=== PATIENT | female | born 1955 | race Caucasian/White ===

== ENCOUNTER → 2016-11-25 | Outpatient (CLI) | payer BC ==
[~2016-11-25] MED LIST: AMLO5TAB2 PO; ASP81CT PO; ASPI-983 PO; BISM262O27 PO; BUDE10.2 IH; CEFU500T PO; CETI10CA PO; CYAN10007 PO; CYCL10TA9 PO; DICY10CA12 PO; DOCU-238 PO; ERGO400C PO; ERYT250C61 PO; EZET10TA5 PO; FAMO20TA3 PO; FAMO20TA5 PO; FAMO20TA73 PO; FENO135C PO; FLUO10CA19 PO; FLUO10CA29 PO; FLUT16SP22 NS; HYDR-3714 PO; HYDR-3729 PO; HYDR-3812 PO; HYDR1TAB PO; ISOS30TA3 PO; LISI-597 PO; LISI10TA2 PO; METO200T32 PO; METO50TA7 PO; MIRT15TA6 PO; MTP50T PO; NF-MET200T PO; NF-XOP-HFA INH; NITR12SP5 SL; PRAS10TA6 PO; RABE20TA PO; RABE20TA27 PO; RANO500T3 PO; ROSU10TA PO; RT-ALBUINH IH; RT-ALBUTEROL SULF 2.5 MG/3 ML PRE-MIX VIAL INH ONE; SIMV40TA2 PO; SULF1TAB35 PO; mega red
--- NOTE | 2016-11-25 15:34 | Diagnostic Imaging Report ---
INDICATION: Dyspnea. Cough. Comparison with 12/08/2015. FINDINGS: Two views show the lungs to be well aerated. No infiltrates have developed. Calcified granuloma again noted in the right upper lung. Heart is not enlarged. No hilar adenopathy. No pneumothorax or pleural effusion. IMPRESSION: Calcified granuloma with no acute changes demonstrated when compared with previous exam. Dictated by: Dictated on workstation # [id number]
== END ==
LOC: RT 14:55
PROVIDERS: ATTEND Internal Medicine Critical Care Medicine
DX: R06.00 Dyspnea, unspecified (principal)
CPT/HCPCS: 71020; 94060; 94640; 94726; 94729

== ENCOUNTER 2017-01-23 09:59 | Outpatient (RCR) | payer BC ==
[~2017-01-23 09:59] MED LIST changes: -RT-ALBUTEROL SULF 2.5 MG/3 ML PRE-MIX VIAL INH ONE
== END 2017-04-23 | disposition home or self-care (01) ==
LOC: PULM 09:59
PROVIDERS: ATTEND Nurse Practitioner Family
DX: J43.9 Emphysema, unspecified (principal); R06.00 Dyspnea, unspecified; F17.201 Nicotine dependence, unspecified, in remission
CPT/HCPCS: 99211

== ENCOUNTER → 2017-01-25 | Outpatient (CLI) | payer BC ==
--- NOTE | 2017-01-26 10:05 | ECHOCARDIOGRAPHY REPORT ---
DATE OF SERVICE: 01/25/2017 PROCEDURE: Two-dimensional echocardiogram. REFERRING PHYSICIAN: Dr. Marguerite Pinto. INDICATIONS: Coronary artery disease. MEASUREMENTS: LVID end diastolic 3.8. IVS thickness 1.1. LVPW thickness 1.0. Left atrial diameter 2.5. Ejection fraction 60%. FINDINGS: 1. Technical quality is good. 2. The left ventricle is normal in size with normal contractility. Systolic function appeared to be normal. Estimated ejection fraction 60%. Diastolic dysfunction is suggested by Doppler. 3. The left atrium is normal in size. No clot or thrombus were seen within the left atrium. 4. The right atrium and right ventricle are normal in size. No clot or thrombus were seen within the right side. 5. The mitral valve is normal in morphology with mild mitral regurgitation noted by color Doppler flow. No mitral valve prolapse. No mitral valve stenosis. 6. The aortic valve is trileaflet with normal opening and closing pattern. No significant aortic stenosis or regurgitation was seen. 7. The tricuspid valve is normal in morphology with mild tricuspid regurgitation noted by color Doppler flow. Doppler across tricuspid valve estimated pulmonary artery pressure of 25 plus right atrial pressure. 8. The pulmonic valve is functioning normally. 9. No pericardial effusion. CONCLUSION: 1. Normal left ventricular size and systolic function. Estimated ejection fraction of 60%. 2. Mild mitral and tricuspid regurgitation. 3. Estimated pulmonary artery pressure of 30-35 mmHg. Job ID: [id number] DocumentID: [id number] Dictated Date: 01/25/2017 17:10:27 Commercial Portfolio Manager Date: 01/26/2017 09:38:26 Dictated By: MELISSA PAREKH MD
== END ==
LOC: CARD 12:32
PROVIDERS: ATTEND Physician Assistant
DX: I25.10 Atherosclerotic heart disease of native coronary artery without angina pectoris (principal); I65.23 Occlusion and stenosis of bilateral carotid arteries; I10 Essential (primary) hypertension; E78.2 Mixed hyperlipidemia
CPT/HCPCS: 93306

== ENCOUNTER → 2017-02-08 | Outpatient (CLI) | payer BC ==
[~2017-02-08] MED LIST changes: +CATHETER FLUSH 10 ML SYR IV PRN; +REGADENOSON 0.4 MG/5 ML SYR (LEXISCAN) IV ONE
[2017-02-08 09:20] VITALS: BP 140/72
== END ==
LOC: CARD 07:22
PROVIDERS: ATTEND Physician Assistant
DX: I25.10 Atherosclerotic heart disease of native coronary artery without angina pectoris (principal); I65.23 Occlusion and stenosis of bilateral carotid arteries; I10 Essential (primary) hypertension; E78.2 Mixed hyperlipidemia
CPT/HCPCS: 78452; 93017

== ENCOUNTER → 2018-03-07 | Outpatient (CLI) | payer BC ==
[~2018-03-07] MED LIST changes: +ACHD5005 PO; -CATHETER FLUSH 10 ML SYR IV PRN; -HYDR-3812 PO; +ISM60TCR PO; -METO200T32 PO; +METO200T48 PO; +MONT10TA24 PO; +NF-XOP-HFA IH; -REGADENOSON 0.4 MG/5 ML SYR (LEXISCAN) IV ONE; +TIOT4MIS3 IH
== END ==
LOC: PREOP 10:03
PROVIDERS: ATTEND Internal Medicine
DX: Z01.818 Encounter for other preprocedural examination (principal)

== ENCOUNTER → 2018-12-10 | Outpatient (CLI) | payer BC, OTHER ==
[~2018-12-10] MED LIST changes: -AMLO5TAB2 PO; +AMLO5TAB9 PO; -ROSU10TA PO; +ROSU10TA22 PO
[2018-12-10 08:01] LABS: ALBUMIN 3.9 GM/DL (3.2-4.5); BILIRUBIN,TOTAL 0.2 MG/DL (0.1-1.0); CALCIUM 9.4 MG/DL (8.5-10.1); CREATININE SERUM 1.18 MG/DL (0.60-1.30); POTASSIUM 3.8 MMOL/L (3.6-5.0); TOTAL PROTEIN 7.2 GM/DL (6.4-8.2)
== END ==
LOC: CARD 07:21
PROVIDERS: ATTEND Physician Assistant
DX: I25.10 Atherosclerotic heart disease of native coronary artery without angina pectoris (principal); I10 Essential (primary) hypertension; E78.5 Hyperlipidemia, unspecified; R06.09 Other forms of dyspnea; I07.1 Rheumatic tricuspid insufficiency
CPT/HCPCS: 36415; 80053; 80061; 93306

== ENCOUNTER → 2018-12-12 | Outpatient (CLI) | payer BC, OTHER ==
[~2018-12-12] VITALS: Ht 162.6 cm; Wt 62.6 kg
[~2018-12-12] MED LIST changes: +CATHETER FLUSH 10 ML SYR IV PRN; +REGADENOSON 0.4 MG/5 ML SYR (LEXISCAN) IV ONE
[2018-12-12 09:08] VITALS: BP 143/63
[2018-12-12 09:10] VITALS: BP 137/58
--- NOTE | 2018-12-12 16:08 | STRESS TEST ---
DATE OF SERVICE: 12/12/2018 LEXISCAN MYOVIEW STRESS TEST REPORT REFERRING PHYSICIAN: Marguerite Pinto DO. Baseline heart rate is 64. Baseline blood pressure 136/66. Baseline EKG is sinus rhythm with no ischemic changes. In summary, the patient was injected with 10.2 mCi of technetium-99 Myoview and the resting images were obtained. Then, the patient received 0.4 mg of Lexiscan followed by 29.9 mCi of technetium-99 Myoview. Throughout the test, there were no EKG changes. The resting and stress images were reviewed and compared in the short axis, horizontal long axis, and vertical long axis view. Review of the images showed good radiotracer uptake with no significant ischemia or infarction. SSS is 0. TID value is 0.94. On the gated images, the left ventricle appeared to be in normal size with normal contractility. Calculated ejection fraction 75%. CONCLUSION: 1. The patient tolerated Lexiscan well. 2. No ischemia or infarction on SPECT images. 3. Normal left ventricular size with normal contractility. Calculated ejection fraction 75%. Job ID: [id number] DocumentID: [id number] Dictated Date: 12/12/2018 15:18:59 Cloth Finishing Range Operator Date: 12/12/2018 16:07:42 Dictated By: MELISSA PAREKH MD
== END ==
LOC: CARD 07:22
PROVIDERS: ATTEND Physician Assistant
DX: R06.09 Other forms of dyspnea (principal); I25.10 Atherosclerotic heart disease of native coronary artery without angina pectoris; I10 Essential (primary) hypertension
CPT/HCPCS: 78452; 93017

== ENCOUNTER → 2019-02-25 | Outpatient (CLI) | payer BC ==
[~2019-02-25] MED LIST changes: -CATHETER FLUSH 10 ML SYR IV PRN; -REGADENOSON 0.4 MG/5 ML SYR (LEXISCAN) IV ONE
--- NOTE | 2019-02-25 12:40 | Diagnostic Imaging Report ---
Indication: Routine screening. Comparison is made to prior mammogram from 08/05/2015 and 07/28/2014. 2-D and 3-D bilateral screening mammography was performed with CAD. Scattered fibroglandular densities are identified bilaterally. Benign-appearing calcifications are noted bilaterally. Benign-appearing nodule in the outer left breast appears stable. No mass or malignant-appearing microcalcifications are seen. Axillae unremarkable. Impression: BI-RADS category 2 No mammographic features suspicious for malignancy are identified. ACR BI-RADS Category 2: Benign findings. Result letter will be mailed to the patient. Note: At least 10% of breast cancer is not imaged by mammography. Dictated by: Dictated on workstation # [id number]
== END ==
LOC: RAD 08:09
PROVIDERS: ATTEND Internal Medicine
DX: Z12.31 Encounter for screening mammogram for malignant neoplasm of breast (principal); Z00.00 Encounter for general adult medical examination without abnormal findings
CPT/HCPCS: 77067

== ENCOUNTER → 2019-08-05 | Outpatient (CLI) | payer BC ==
[~2019-08-05] MED LIST changes: +RT-ALBUTEROL SULF 2.5 MG/3 ML PRE-MIX VIAL INH SCH; +RT-ALBUTEROL SULF 2.5 MG/3 ML PRE-MIX VIAL ONE
[2019-08-05 11:33] LABS: CREATININE SERUM 1.34 MG/DL (0.60-1.30)
--- NOTE | 2019-08-05 13:45 | Diagnostic Imaging Report ---
EXAMINATION: CT Chest without contrast. TECHNIQUE: Multiple contiguous axial images were obtained through the chest without the use of intravenous contrast. All CT scans use one or more of the following dose optimizing techniques: automated exposure control, MA and/or KvP adjustment based on a patient size and exam type, or iterative reconstruction. HISTORY: DYSPNEA COMPARISON: None available. FINDINGS: The lungs are clear without edema or pneumonia. No pleural effusion or pneumothorax. No suspicious nodules. There is mild emphysema. Heart size is normal. No pericardial effusion. Aorta is normal in caliber. There is no axillary or supraclavicular lymphadenopathy. There is no mediastinal lymphadenopathy. There are severe coronary artery calcifications, likely with stents present in multiple coronary arteries. Calcified mediastinal and hilar lymph nodes are present. Calcified granulomas are seen in the right lobe. Gallbladder is surgically absent. There are calcified granulomas in the spleen. There are no suspicious osseous lesions. IMPRESSION: 1. Mild emphysema, otherwise, clear lungs. Dictated by: Dictated on workstation # [id number]
== END ==
LOC: RAD 10:55
PROVIDERS: ATTEND Nurse Practitioner Family
DX: J43.9 Emphysema, unspecified (principal); J30.9 Allergic rhinitis, unspecified; K21.9 Gastro-esophageal reflux disease without esophagitis; F17.201 Nicotine dependence, unspecified, in remission
CPT/HCPCS: 36415; 71250; 82565; 84520; 94060; 94726; 94729

== ENCOUNTER → 2020-12-30 | Outpatient (CLI) | payer OTHER ==
[~2020-12-30] MED LIST changes: +AMLO-250 PO; -AMLO5TAB9 PO; +ASPI-1238 PO; -ASPI-983 PO; -ERYT250C61 PO; +ERYT250C62 PO; +EZET10TA17 PO; -EZET10TA5 PO; -FLUO10CA19 PO; +FLUO10CA31 PO; -ISM60TCR PO; -ISOS30TA3 PO; +ISOS30TA82 PO; +ISOS60TA63 PO; -LISI10TA2 PO; +LISI10TA25 PO; -MONT10TA24 PO; +MONT10TA32 PO; -RABE20TA27 PO; +RABE20TA30 PO; -RT-ALBUTEROL SULF 2.5 MG/3 ML PRE-MIX VIAL INH SCH; -RT-ALBUTEROL SULF 2.5 MG/3 ML PRE-MIX VIAL ONE
== END ==
LOC: CARD 09:00
PROVIDERS: ATTEND Physician Assistant
DX: I25.10 Atherosclerotic heart disease of native coronary artery without angina pectoris (principal); I51.7 Cardiomegaly; I36.1 Nonrheumatic tricuspid (valve) insufficiency
CPT/HCPCS: 93306

== ENCOUNTER → 2021-01-27 | Outpatient (CLI) | payer OTHER ==
[~2021-01-27] VITALS: Ht 162 cm; Wt 64.0 kg
[~2021-01-27] MED LIST changes: +CATHETER FLUSH 10 ML SYR IV PRN; -DOCU-238 PO; +DOCU-241 PO; +REGADENOSON 0.4 MG/5 ML SYR (LEXISCAN) IV ONE
[2021-01-27 09:04] VITALS: BP 137/64
--- NOTE | 2021-01-27 14:46 | Cardiology Stress Test Report ---
Stress Test Report Date of Procedure/Referring: Date of Procedure: January 27, 2021 Bailey Alexander Admitting Physician Seng Barrios MD Indications: Coronary artery disease Baseline Heart Rate: 59 Baseline Blood Pressure: Blood Pressure Systolic: 137 Blood Pressure Diastolic: 64 Baseline Vitals Vital Signs Date Time Temp Pulse Resp B/P (MAP) Pulse Ox O2 Delivery O2 Flow Rate FiO2 01/27/21 09:04 59 137/64 (88) 98 Baseline EKG: Baseline EKG: NSR Summary After explaining the procedure to the patient, she signed a consent and then brought to the stress nuclear laboratory. Patient received 0.4 mg Lexiscan for stress test, ECG, heart rate and blood pressure were monitored continuously. Resting and stress dose of radio tracer were injected, imaging was acquired and reviewed in short axis, horizontal long axis and vertical long axis views. TID: 1.07 SSS: 3 SDS: 3 EF: 72 1. Patient tolerated Lexiscan well 2. No significant ischemia or infarction on SPECT images 3. Normal left ventricular size, EF 72% MELISSA PAREKH MD January 27, 2021 14:46
== END ==
LOC: CARD 07:45
PROVIDERS: ATTEND Physician Assistant
DX: I25.10 Atherosclerotic heart disease of native coronary artery without angina pectoris (principal)
CPT/HCPCS: 78452; 93017; A9502

== ENCOUNTER → 2021-02-16 | Outpatient (CLI) | payer OTHER ==
[~2021-02-16] MED LIST changes: -CATHETER FLUSH 10 ML SYR IV PRN; -REGADENOSON 0.4 MG/5 ML SYR (LEXISCAN) IV ONE
--- NOTE | 2021-02-17 08:57 | Diagnostic Imaging Report ---
Indication: Routine screening. Comparison is made with prior mammogram from 02/25/2019 and 08/05/2015. 2-D and 3-D bilateral screening mammography was performed with CAD. Scattered fibroglandular densities are identified bilaterally. A benign nodule in the outer left breast is stable. There are benign calcifications bilaterally. No spiculated mass or malignant appearing microcalcifications are seen. Axillae are unremarkable. IMPRESSION: BI-RADS Category 2 No mammographic features suspicious for malignancy are identified. ACR BI-RADS Category 2: Benign findings. Result letter will be mailed to the patient. Note: At least 10% of breast cancer is not imaged by mammography. Dictated by: Dictated on workstation # [id number]
== END ==
LOC: RAD 13:30
PROVIDERS: ATTEND Pediatrics
DX: Z12.31 Encounter for screening mammogram for malignant neoplasm of breast (principal)
CPT/HCPCS: 77063; 77067

== ENCOUNTER → 2021-06-21 | Outpatient (CLI) | payer OTHER ==
[~2021-06-21] MED LIST changes: -DOCU-241 PO; +DOCU-26 PO; +MIRT-68 PO; -SULF1TAB35 PO; +SULF1TAB38 PO
--- NOTE | 2021-06-21 19:58 | Diagnostic Imaging Report ---
CT Lung Screening INDICATION: [id number] history of smoking, quit smoking six years prior, screening for lung cancer. TECHNIQUE: Noncontrast, low-dose CT imaging performed according to the lung cancer screening protocol. Auto Exposure Controls were utilize during the CT exam to meet ALARA standards for radiation dose reduction. COMPARISON: 08/05/2019. FINDINGS: Calcified mediastinal and hilar lymph nodes are again identified. No pathologically enlarged lymph nodes within the chest. Scattered vascular calcifications without aneurysmal dilatation of the thoracic aorta. Ductus bump/ductus diverticulum is again identified. The heart is within normal limits in size. No significant pericardial effusion. Advanced vascular calcifications versus stents associated with the coronary arteries. Tiny hiatal hernia. No pericardial effusion. No pleural effusion. No pneumothorax. The trachea is patent. 2 mm subpleural solid left upper lobe pulmonary nodule, series 2, image 43. 4 mm pleural-based left upper lobe pulmonary nodule is stable. Stable solid 4 mm left lower lobe pulmonary nodule, series 2, image 169. Calcified granuloma within the right upper lobe. Additional 4 mm and smaller bilateral pulmonary nodules are present and not significantly changed. No additional new suspicious pulmonary nodule. Cholecystectomy. Calcified splenic granuloma. Minimally visualized upper abdomen is otherwise unremarkable. No acute osseous abnormality with mild scattered osseous degenerative changes. IMPRESSION: 1. Bilateral sub-0.4 cm pulmonary nodules are felt to have a benign appearance or morphology. 2. Moderate background emphysematous changes. 3. Stents versus advanced vascular calcifications within the coronary arteries. 4. Evidence of chronic granulomatous disease. LUNG-RADS CATEGORY: 2: Benign appearance or behavior. FOLLOW-UP: Continued annual low-dose CT of the chest in 12 months. Dictated by: Dictated on workstation # [id number]
== END ==
LOC: RAD 16:15
PROVIDERS: ATTEND Nurse Practitioner Family
DX: Z12.2 Encounter for screening for malignant neoplasm of respiratory organs (principal); J43.9 Emphysema, unspecified; R91.8 Other nonspecific abnormal finding of lung field; Z87.891 Personal history of nicotine dependence
CPT/HCPCS: 71271

== ENCOUNTER → 2023-02-23 | Outpatient (CLI) | payer OTHER ==
[~2023-02-23] MED LIST changes: +ALBU8.5H6 IH; +CYCL10TA25 PO; -FLUO10CA31 PO; +FLUO10CA33 PO; +MONT-40 PO; -MONT10TA32 PO; +NF-CRES10T PO; -ROSU10TA22 PO; -RT-ALBUINH IH
== END ==
LOC: CARD 08:12
PROVIDERS: ATTEND Physician Assistant
DX: I34.0 Nonrheumatic mitral (valve) insufficiency (principal); I11.9 Hypertensive heart disease without heart failure; I25.10 Atherosclerotic heart disease of native coronary artery without angina pectoris
CPT/HCPCS: 93306

== ENCOUNTER → 2023-04-26 | Outpatient (CLI) | payer OTHER | LOC: CARD 07:08 | PROVIDERS: ATTEND Physician Assistant | DX: I25.10 Atherosclerotic heart disease of native coronary artery without angina pectoris (principal) ==

== ENCOUNTER 2023-05-24 13:57 | Emergency (ER) | payer OTHER ==
[~2023-05-24] VITALS: Ht 164 cm; Wt 65.7 kg
[2023-05-24] MEDS ORDERED: NS IV 1000 ML 1,000 ML IV STA (14:02)
--- NOTE | 2023-05-24 14:07 | ED General ---
General Chief Complaint: Cardiac/General Problems Stated Complaint: LOW BP Nursing Triage Note: PT TO RM 7 BY [facility] EMS FROM [facility] WITH CC OF HYPOTENSION, FLU LIKE SS SINCE MONDAY, DIZZY AND NOT EATING WELL FOR A FEW DAYS, COUGH IS GETTING BETTER, PT'S TRIED TO POOP HER BACK FOR HER AND NOW PT HAS LT RIB PAIN Source of Information: Patient Exam Limitations: No Limitations (VENRON WILSON) History of Present Illness Date Seen by Provider: May 24, 2023 Time Seen by Provider: 14:05 Initial Comments Patient is a 68-year-old female who presents to ED for flulike symptoms. She states symptoms started 3 days ago with body aches, chills weakness fatigue cough and headache. She states initially her cough was productive now today is more dry. Some associated shortness of breath. She states the body aches and fatigue and weakness have improved today. She was seen at the clinic today for to receive something for cough and was found to be hypotensive with a blood pressure in the 70s systolic. She was given 500 mL of normal saline. Blood pressure improved to 102/55 per EMS. She denies any vomiting, diarrhea, chest pain or abdominal pain. She has been taken cold and flu medication and Tylenol. She does have a history of COPD, hypertension, coronary artery disease. She was concerned today as she felt dizzy but has not eaten as much over the past few days. She is currently on metoprolol 200 mg daily. Patient reports ur ination without any pain or difficulty. Denies fever, visual changes, sore throat, ear pain, unilateral weakness or sensory changes. Patient states her attempted to pop her back today she felt a sharp pain to her left lateral ribs with tenderness and pain on deep inspiration (VERNON WILSON) Allergies and Home Medications Allergies Coded Allergies: Penicillins (Verified Allergy, Unknown, 04/12/07) Patient Home Medication List Home Medication List Reviewed: Yes (VERONN WILSON) Amlodipine Besylate (Amlodipine Besylate) 5 Mg Tablet, 5 MG PO DAILY, (Reported) Entered as Reported by: DEYSI BONE on 03/09/18 0900 Aspirin (Aspirin EC) 81 Mg Tablet.dr, 81 MG PO DAILY, (Reported) Entered as Reported by: ERASTO KIRAN on 09/07/15 1345 Cetirizine HCl (Zyrtec) 10 Mg Capsule, 10 MG PO DAILY, (Reported) Entered as Reported by: ALICE CALDERA on 09/27/15 1658 Cyclobenzaprine HCl (Cyclobenzaprine HCl) 10 Mg Tablet, 10 MG PO BID PRN for MUSCLE SPASMS, (Reported) Entered as Reported by: PIPER QUICK on 10/12/15 1018 Famotidine (Famotidine) 20 Mg Tablet, 20 MG PO BID, (Reported) Entered as Reported by: ERASTO KIRAN on 12/08/15 1625 Isosorbide Mononitrate (Isosorbide Mononitrate ER) 60 Mg Tab, 60 MG PO DAILY, (Reported) Entered as Reported by: DEYSI BONE on 03/09/18 0900 Levalbuterol Tartrate (Xopenex Hfa) 15 Gm Hfa.aer.ad, 2 PUFF IH Q4H PRN for SHORTNESS OF BREATH, (Reported) Entered as Reported by: DEYSI BONE on 03/09/18 0900 Metoprolol Succinate (Toprol Xl) 200 Mg Tab, 200 MG PO DAILY, (Reported) Entered as Reported by: ERASTO KIRAN on 12/08/15 1625 Mirtazapine (Mirtazapine) 15 Mg Tablet, 15 MG PO HS, (Reported) Entered as Reported by: ERASTO KIRAN on 12/08/15 1625 Montelukast Sodium (Montelukast Sodium) 10 Mg Tablet, 10 MG PO DAILY, (Reported) Entered as Reported by: DEYSI BONE on 03/09/18 0900 Rabeprazole Sodium (Rabeprazole Sodium) 20 Mg Tablet.dr, 20 MG PO DAILY, ( Reported) Entered as Reported by: ERASTO KIRAN on 12/08/15 1625 Rosuvastatin Calcium (Crestor) 10 Mg Tablet, 10 MG PO HS, (Reported) Entered as Reported by: ERASTO KIRAN on 09/07/15 1345 Tiotropium Br/Olodaterol HCl (Stiolto Respimat Inhal Mull[place]) 4 Gm Mist.inhal, 4 GM IH DAILY, (Reported) Entered as Reported by: DEYSI BONE on 03/09/18 0900 Review of Systems Review of Systems Constitutional: chills, dizziness; No fever; malaise, weakness EENTM: No ear pain, No blurred vision, No double vision Respiratory: cough; No dyspnea on exertion; short of breath Cardiovascular: No chest pain Gastrointestinal: No abdominal pain, No diarrhea, No nausea, No vomiting Genitourinary: No decreased output, No discharge Musculoskeletal: No back pain, No joint pain Skin: No change in color, No change in hair/nails (VERNON WILSON) All Other Systems Reviewed Negative Unless Noted: Yes (VERNON WILSON) Past Bbhshuu-Zjvlil-Icehmt Hx Immunizations Up To Date Tetanus Booster (TDap): More than 5yrs PED Vaccines UTD: Yes (VERNON WILSON) Seasonal Allergies Seasonal Allergies: Yes (VERNON WILSON) Past Medical History Cardiac, Coronary Stent, Gallbladder, Hysterectomy, Orthopedic Asthma, COPD, Emphysema Currently Using CPAP: No Currently Using BIPAP: No Coronary Artery Disease, High Cholesterol, Hypertension Headaches /Migraines Reproductive Disorders: No Female Reproductive Disorders: Endometriosis 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: Hysterectomy Gastroesophageal Reflux, Hiatal Hernia, Irritable Bowel Osteoporosis, Arthritis Loss of Vision: Denies Hearing Impairment: Denies Anxiety Adverse Reaction/Blood Tranf: No (VERNON WILSON) Family Medical History Cardiovascular disease 19 MOTHER G8 BROTHER High cholesterol Hypertension 19 MOTHER Heart Disease, Cancer (VERNON WILSON) Physical Exam Vital Signs Vital Signs - First Documented 05/24/23 13:58 Temp 36.1 Pulse 54 Resp 20 B/P (MAP) 102/57 (72) Pulse Ox 98 O2 Delivery Room Air (WILFRED ZAZUETA MD) Vital Signs Capillary Refill : Less Than 3 Seconds (VERNON WILSON) Height, Weight, BMI Height: 5'4.00" Weight: 138lbs. 0.0oz. [id number]; 24.00 BMI Method:Stated General Appearance: No Apparent Distress, WD/WN Eyes: Bilateral Eye Normal Inspection, Bilateral Eye PERRL, Bilateral Eye EOMI HEENT: PERRL/EOMI, TMs Normal, Normal ENT Inspection, Pharynx Normal Neck: Full Range of Motion, Normal Inspection, Non Tender, Supple Respiratory: Chest Non Tender, No Accessory Muscle Use, No Respiratory Distress, Other (Tenderness below left breast. No crepitus or step-off. Lung sounds clear bilateral) Cardiovascular: No Gallop, No JVD, No Murmur, Bradycardia Gastrointestinal: Normal Bowel Sounds, No Organomegaly, No Pulsatile Mass, Non Tender Extremity: Normal Capillary Refill, Normal Inspection, Normal Range of Motion, Non Tender Neurologic/Psychiatric: Alert, Oriented x3, No Motor/Sensory Deficits, Normal Mood/Affect, optical dispenser II-XII Norm as Tested (VERNON WILSON) Focused Exam Lactate Level 05/24/23 14:40: Lactic Acid Level 1.05 (WILFRED ZAZUETA MD) Lactic Acid Level Laboratory Tests Test 05/24/23 14:40 Lactic Acid Level 1.05 MMOL/L (0.50-2.00) (WILFRED ZAZUETA MD) Progress/Results/Core Measures Suspected Sepsis SIRS Temperature: Pulse: 54 Respiratory Rate: 20 Laboratory Tests 05/24/23 14:00: White Blood Count 2.8L Blood Pressure 102 /57 Mean: 72 05/24/23 14:40: Lactic Acid Level 1.05 Laboratory Tests 05/24/23 14:00: Creatinine 1.47H, Platelet Count 178, Total Bilirubin 0.2 (VERNON WILSON) Results/Orders Lab Results Laboratory Tests Test 05/24/23 14:00 05/24/23 14:10 05/24/23 14:40 05/24/23 15:50 Range/Units White Blood Count 2.8 L 4.3-11.0 10^3/uL Red Blood Count 3.47 L 3.80-5.11 10^6/uL Hemoglobin 7.8 L 11.5-16.0 g/dL Hematocrit 27 L 35-52 % Mean Corpuscular Volume 78 L 80-99 fL Mean Corpuscular Hemoglobin 23 L 25-34 pg Mean Corpuscular Hemoglobin Concent 29 L 32-36 g/dL Red Cell Distribution Width 18.5 H 10.0-14.5 % Platelet Count 178 130-400 10^3/uL Mean Platelet Volume 11.7 9.0-12.2 fL Immature Granulocyte % (Auto) 0 % Neutrophils (%) (Auto) 50 42-75 % Lymphocytes (%) (Auto) 33 12-44 % Monocytes (%) (Auto) 17 H 0-12 % Eosinophils (%) (Auto) 0 0-10 % Basophils (%) (Auto) 0 0-10 % Neutrophils # (Auto) 1.4 L 1.8-7.8 10^3/uL Lymphocytes # (Auto) 0.9 L 1.0-4.0 10^3/uL Monocytes # (Auto) 0.5 0.0-1.0 10^3/uL Eosinophils # (Auto) 0.0 0.0-0.3 10^3/uL Basophils # (Auto) 0.0 0.0-0.1 10^3/uL Immature Granulocyte # (Auto) 0.0 0.0-0.1 10^3/uL Sodium Level 138 135-145 MMOL/L Potassium Level 3.7 3.6-5.0 MMOL/L Chloride Level 107 98-107 MMOL/L Carbon Dioxide Level 21 21-32 MMOL/L Anion Gap 10 5-14 MMOL/L Blood Urea Nitrogen 16 7-18 MG/DL Creatinine 1.47 H 0.60-1.30 MG/DL Estimat Glomerular Filtration Rate 39 BUN/Creatinine Ratio 11 Glucose Level 119 H 70-105 MG/DL Calcium Level 7.9 L 8.5-10.1 MG/DL Corrected Calcium 8.4 L 8.5-10.1 MG/DL Total Bilirubin 0.2 0.1-1.0 MG/DL Aspartate Amino Transf (AST/SGOT) 44 H 5-34 U/L Alanine Aminotransferase (ALT/SGPT) 30 0-55 U/L Alkaline Phosphatase 110 40-136 U/L Troponin I < 0.028 <0.028 NG/ML C-Reactive Protein High Sensitivity 0.14 0.00-0.50 MG/DL Total Protein 6.3 L 6.4-8.2 GM/DL Albumin 3.4 3.2-4.5 GM/DL Lipase 68 8-78 U/L Influenza Type A (RT-PCR) Not Detected Not Detecte Influenza Type B (RT-PCR) Not Detected Not Detecte SARS-CoV-2 RNA (RT-PCR) Detected H Not Detecte Lactic Acid Level 1.05 0.50-2.00 MMOL/L Urine Color YELLOW Urine Clarity CLEAR Urine pH 5.5 5-9 Urine Specific [place] 1.025 H 1.016-1.022 Urine Protein 1+ H NEGATIVE Urine Glucose (UA) NEGATIVE NEGATIVE Urine Ketones NEGATIVE NEGATIVE Urine Nitrite NEGATIVE NEGATIVE Urine Bilirubin NEGATIVE NEGATIVE Urine Urobilinogen 0.2 < = 1.0 MG/DL Urine Leukocyte Esterase NEGATIVE NEGATIVE Urine RBC (Auto) NEGATIVE NEGATIVE Urine RBC NONE /HPF Urine WBC 0-2 /HPF Urine Squamous Epithelial Cells >50 H /HPF Urine Crystals PRESENT H /LPF Urine Amorphous Sediment FEW NELSON URATES H /LPF Urine Bacteria TRACE /HPF Urine Casts PRESENT /LPF Urine Hyaline Casts 25-50 H /LPF Urine Mucus LARGE H /LPF Urine Culture Indicated NO (WILFRED ZAZUETA MD) Vital Signs/I&O 05/24/23 05/24/23 05/24/23 05/24/23 13:58 14:11 15:07 16:28 Temp 36.1 36.1 Pulse 54 56 59 58 62 Resp 20 20 B/P (MAP) 102/57 (72) 107/49 (68) 105/53 89/47 (61) 94/44 (61) Pulse Ox 98 98 O2 Delivery Room Air Room Air Room Air (WILFRED ZAZUETA MD) Vital Signs/I&O Capillary Refill : Less Than 3 Seconds (VERNON WILSON) Blood Pressure Mean: 72 ECG Comment Sinus bradycardia, 53 bpm, QRS duration 90 MS, QTc 442 MS (VERNON WILSON) Departure Communication (PCP) History of COPD, coronary artery disease who presents to ED by EMS for evaluation for flulike symptoms and hypotension. Patient was seen at the clinic this afternoon. Patient Was found to have a blood pressure in the mid 70s systolic. She does take amlodipine, metoprolol, isosorbide mononitrate. She states her blood pressure typically runs 110/80 at home. She Was started on a liter of fluid at [facility]. Blood pressure on arrival was 102/57. She reports flulike symptoms for the past 3 days. Up-to-date on her COVID-vaccine. She reports a cough that was productive for the first 2 days but that has improved. She states her symptoms are improving. She was seen at the clinic today to get cough medication. No vomiting or diarrhea. Patient denies of any current chest pain. No shortness of breath. No focal neural deficits. She did become slightly hypotensive. She was started on a second liter of fluid. Blood pressure improved avg betwen 110-120 systolic with several similar readings. CBC returned hemoglobin of 7.8, white blood cell 2.8, hematocrit 27. Chemistry creatinine 1.47 GFR 39. History of chronic kidney disease. No recent comparison. Normal lactic acid and troponin.. Blood cultures pending. She did receive Rocephin for meetign sirs criteria. Chest x-ray was negative for pneumonia, pneumothorax. She did have some tenderness and pain below the left breast after her popped her back. X-ray did show Questionable new 1 cm nodular density projecting over the right mid to upper lung just inferior to a stable chronic benign calcified granuloma. No fracture or pneumothorax. Recommend outpatient follow-up for stability and evaluation of the not. Patient was able to ambulate without much dizziness. Dizziness has improved after her blood pressure improved. She did not meet the criteria for orthostatic hypotension but her blood pressure did drop 94/44 from 107/47. She was currently asymptomatic during that. She was observed here in the ED with continued monitoring of blood pressure. She remained hemodynamically stable. I did discussed continue observing with a 3 L of fluid but she refused. Did add COVID and influenza which she tested positive for COVID. Due to her corm orbidities she met criteria for Paxlovid. She refused treatment. She states her symptoms are improving and does not want to take the medication secondary to medication interactions. Patient is feeling much better at this time. Discussed with patient I suggest not taking her blood pressure medication for the next 1 to 2 days. Continue monitoring blood pressure. Recommend staying hydrated. If any worsening symptoms such as dizziness, lightheadedness or continued low blood pressure she will need to return back to ED. conservative treatment for the COVID. Isolate for additional 2 more days. As long as she is asymptomatic may return with a mask for additional 5 days. (VERNON WILSON) Impression Primary Impression: COVID-19 Additional Impressions: Anemia Hypotension Disposition: 01 HOME, SELF-CARE Condition: Stable Departure-Patient Inst. Decision time for Depature: 16:16 (VERNON WILSON) Referrals: SRI ALBARRAN DO (PCP) Primary Care Physician DELPHINE SEAY MD (Family) Primary Care Physician Patient Instructions: COVID-19 (DC) Add. Discharge Instructions: Recommend stop taking your blood pressure medication for the next 1 to 2 days. Recommend staying hydrated. Continue monitoring blood pressure. Suggest starting iron supplement ferrous sulfate 300 mg daily. Recheck with your primary care physician in the next 2 or 3 days for reevaluation. If any worsening symptoms return back to ED. All discharge instructions reviewed with patient and/or family. Voiced understanding. ATTENDING PHYSICIAN NOTE: I was physically present as attending physician in the emergency department during the care of this patient, but I was not directly involved in the decision making or delivery of care for this patient. (WILFRED ZAZUETA MD) VERNON WILSON May 24, 2023 14:07 WILFRED ZAZUETA MD May 24, 2023 19:48
[2023-05-24 14:10] LABS: BASOPHILS % (AUTO) 0 % (0-10); EOSINOPHILS % (AUTO) 0 % (0-10); HEMATOCRIT 27 % (35-52); HEMOGLOBIN 7.8 g/dL (11.5-16.0); LYMPHOCYTES # (AUTO) 0.9 10^3/uL (1.0-4.0); LYMPHOCYTES % (AUTO) 33 % (12-44); MEAN CORPUSCULAR HEMOGLOBIN 23 pg (25-34); MEAN CORPUSCULAR HGB CONC 29 g/dL (32-36); MEAN CORPUSCULAR VOLUME 78 fL (80-99); MEAN PLATELET VOLUME 11.7 fL (9.0-12.2); MONOCYTES # (AUTO) 0.5 10^3/uL (0.0-1.0); MONOCYTES % (AUTO) 17 % (0-12); NEUTROPHILS # (AUTO) 1.4 10^3/uL (1.8-7.8); NEUTROPHILS % (AUTO) 50 % (42-75); PLATELET COUNT 178 10^3/uL (130-400); WHITE BLOOD COUNT 2.8 10^3/uL (4.3-11.0)
[2023-05-24 14:23] LABS: ALBUMIN 3.4 GM/DL (3.2-4.5); CHLORIDE 107 MMOL/L (98-107); POTASSIUM 3.7 MMOL/L (3.6-5.0); SODIUM 138 MMOL/L (135-145)
[2023-05-24 14:24] LABS: CALCIUM 7.9 MG/DL (8.5-10.1)
[2023-05-24 14:25] LABS: GLUCOSE 119 MG/DL (70-105); TOTAL PROTEIN 6.3 GM/DL (6.4-8.2)
[2023-05-24 14:26] LABS: CARBON DIOXIDE 21 MMOL/L (21-32)
[2023-05-24 14:27] LABS: BILIRUBIN,TOTAL 0.2 MG/DL (0.1-1.0)
[2023-05-24 14:29] LABS: ALKALINE PHOSPHATASE 110 U/L (40-136); CREATININE SERUM 1.47 MG/DL (0.60-1.30); GFR ESTIMATED 39
[2023-05-24 14:30] LABS: BUN/CREATININE RATIO 11
[2023-05-24 14:32] LABS: ALANINE AMINOTRANSFERASE 30 U/L (0-55); LIPASE 68 U/L (8-78)
[2023-05-24] MEDS ORDERED: cefTRIAXone IV/IM 1,000 MG in NS (IVPB) 50 ML 50 ML IV STA (14:36)
--- NOTE | 2023-05-24 14:52 | Diagnostic Imaging Report ---
INDICATION: Shortness of breath. COMPARISON: Exam is compared with radiograph 11/25/2016. 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 However, projecting just inferior to that stable density is a new opacity ovoid measuring about 1 cm reflecting a change from prior. This is not clearly associated with any overlying ribs and is suspicious for a new pulmonary nodule. Consider follow-up with a chest CT. This would not necessitate IV contrast. Lungs are otherwise nonfocal and clear. No failure, effusion, or pneumothorax. IMPRESSION: 1. Questionable new 1 cm nodular density projecting over the right mid to upper lung just inferior to a stable chronic benign calcified granuloma. 2. Otherwise, negative. Dictated by: Dictated on workstation # [id number]
[2023-05-24 15:07] VITALS: BP_SYST 107; BP_SYST 89; BP_SYST 94; BP_DIAS 44; BP_DIAS 47; BP_DIAS 49
[2023-05-24 16:09] LABS: BACTERIA,URINE TRACE /HPF; BILIRUBIN,URINE NEGATIVE (NEGATIVE); CLARITY,URINE CLEAR; COLOR,URINE YELLOW; GLUCOSE, URINE (UA) NEGATIVE (NEGATIVE); KETONES,URINE NEGATIVE (NEGATIVE); LEUKOCYTE ESTERASE ,URINE NEGATIVE (NEGATIVE); NITRITE,URINE NEGATIVE (NEGATIVE); PH,URINE 5.5 (5-9); PROTEIN,URINE 1+ (NEGATIVE); SQUAMOUS EPITHELIAL CELL,UR >50 /HPF; WBC,URINE 0-2 /HPF
[2023-05-24 16:10] LABS: AMORPHOUS SEDIMENT,UR FEW AMOR URATES /LPF; HYALINE CASTS, URINE 25-50 /LPF
[2023-05-24 16:28] VITALS: BP 105/53
== END 2023-05-24 16:28 | disposition home or self-care (01) ==
LOC: EDUNIT# 13:57 → ER 14:00
DX: U07.1 COVID-19 (principal); D64.9 Anemia, unspecified; I95.9 Hypotension, unspecified; R05.9 Cough, unspecified; M79.10 Myalgia, unspecified site; R07.81 Pleurodynia
CPT/HCPCS: 36415; 71045; 80053; 81000; 83605; 83690; 84484; 85025; 86141; 87040; 87636; 93005

== ENCOUNTER → 2023-07-06 | Outpatient (CLI) | payer OTHER ==
[~2023-07-06] MED LIST changes: +CATHETER FLUSH 10 ML SYR IVP PRN; -EZET10TA17 PO; +EZET10TA83 PO; +FAMO-356 PO; -FAMO20TA3 PO; +IBUP-30 PO
--- NOTE | 2023-07-06 14:56 | Diagnostic Imaging Report ---
PET/CT INDICATION: Staging renal mass TECHNIQUE: PET/CT imaging was obtained from the base of the skull through the pelvis after the administration of 10.5 mCi of F-[address] imaging was utilized for localization and attenuation correction purposes. The low energy CT utilized for attenuation correction is not considered to be of high enough spatial resolution to allow in and of itself a separate anatomical analysis. Blood glucose 95 mg There are no prior PET/CT examinations available for comparison. The CT angiogram chest exam of 06/20/2023 did note a 1.5 cm pulmonary nodule within the right upper lobe. On this study that nodule is again identified and the nodule is hypermetabolic. The maximum SUV in this area is 12.65. Consequently this mass should be considered neoplastic until proven otherwise. There is no other hypermetabolic activity identified within the mediastinum or lung parenchyma. However there are areas of abnormal uptake involving the anterior tips of the left 7th and 8th ribs. The maximum SUV in these regions is 4.5. The CT images do suggest healing callus formation about the anterior aspects of the 7th and 8th ribs and most likely the abnormal uptake is related to recent trauma and not to metastatic disease. The CT angiography chest exam also suggested a partially imaged 1.5 cm left renal mass. That mass is not hypermetabolic with a max SUV of only 1.9. However in reviewing the previous CT exam the mass does show some vascularity and appears to be solid. The possibility that this is an indolent renal neoplasm should still be considered. A short-term (three-month) follow-up CTA abdomen and pelvis exam would be recommended for further study. There is no other hyper metabolic activity to suggest the presence of malignancy. There is a vague area of slight increased hyper metabolic activity in the right groin just anterior to the common femoral artery and vein. This has a max/SUV of 2.3.I suspect that this is a sequela of prior interventional procedure, such as a cardiac catheterization. Correlation with the patient's history would be recommended. There is also a small area of slightly increased hyper metabolic activity in the soft tissues along the spinous process of one of the mid cervical vertebral on the left. The maximum SUV in this area is 3.0. This is probably related to muscular activity. The CT images failed to show any sign of an acute abnormality. The gallbladder is surgically absent. There is diverticulosis of the sigmoid colon but there is no sign of acute diverticulitis. IMPRESSION: 1. The 1.5 cm mass in the right upper lung seen on the recent CTA chest exam is hypermetabolic and should be considered neoplastic until proven otherwise. There is also increased hypermetabolic activity in the anterior aspects of the left 7th and 8th ribs. However the healing callus formation about the 7th and 8th ribs does suggest that the uptake is related to recent trauma as opposed to metastatic disease. Correlation with the patient's history would be recommended. 2. There is no other hypermetabolic activity to suggest the presence of malignancy. In particular, there is no significant abnormal uptake associated with the mass in the left kidney. Recommendations as above. 3. There is no acute abnormality identified. Dictated by: Dictated on workstation # [id number]
== END ==
LOC: RAD 08:27
PROVIDERS: ATTEND Pediatrics
DX: R91.8 Other nonspecific abnormal finding of lung field (principal); N28.89 Other specified disorders of kidney and ureter
CPT/HCPCS: 78815; 82947; A9552